=== PATIENT | male | born 1990 | race Caucasian/White ===

== ENCOUNTER 2016-11-17 12:05 | Emergency (ER) | payer OTHER ==
--- NOTE | 2016-11-17 12:20 | NUR ---
ARRIVAL PATIENT ARRIVED TO ED 4 AMBULATORY WITH FAMILY. PT REPORTS OF HARD NOTE TO RT FEMORAL AREA. PT HAD ANGIOGRAM DONE ON October AND YESTERDAY NOTICED NOTE FORMED. PAIN/TENDERNESS FELT WHEN WALKING.
--- NOTE | 2016-11-17 12:37 | ER.PDOC ---
General Chief Complaint: Requesting Medical Care Stated Complaint: HARD KNOT ON GROIN Time seen by MD: 12:36 Source: patient Exam Limitations: no limitations History of Present Illness Initial Comments had carotid angiogram last week. Still has "knot" at right inguinal area where arteriopuncture was performed. Concerned it is hard. Onset: last week Where: home Context: other Allergies: Coded Allergies: Penicillins (Verified Allergy, Unknown, Rash, 02/18/16) morphine (Verified Allergy, Unknown, 02/18/16) Vital Signs First Vital Signs Date Time Temp Pulse Resp B/P (MAP) Pulse Ox O2 Delivery O2 Flow Rate FiO2 11/17/16 12:14 98.0 77 18 99 Last Vital Signs Date Time Temp Pulse Resp B/P (MAP) Pulse Ox O2 Delivery O2 Flow Rate FiO2 11/17/16 12:52 77 18 99 11/17/16 12:14 98.0 Past Medical History Surgical History: no surgical history, tonsillectomy Reviewed Nursing Reviewed: Vital Signs, Abn. Noted, Nursing Assessment Review of Systems Constitutional: no symptoms reported EENTM: no symptoms reported Respiratory: no symptoms reported Cardiovascular: no symptoms reported Gastrointestinal: no symptoms reported Genitourinary: no symptoms reported Musculoskeletal: no symptoms reported Skin: see HPI Psychiatric/Neurological: no symptoms reported All Other Systems: Reviewed and Negative Physical Exam General Appearance: Alert, No Apparent Distress Foot: nml inspection Ankle: nml inspection Knee: nml inspection Thigh/Hip: nml inspection Gait: normal Neuro/Vasc/Tendon: sensation nml Skin: warm/dry (1.5 small firm subq induration c/w resolving hematoma in right groin with central pw. no erythema or tenderness. appears to be healing apropriately) Head/ENT: nml inspection Neck/Back: nml inspection Departure Time of Disposition: 12:45 Disposition: 01 HOME, SELF-CARE Impression: Primary Impression: Groin pain Qualified Codes: R10.31 - Right lower quadrant pain Condition: Stable Referrals: PCP,UNKNOWN (PCP) PRIMARY CARE PROVIDER Additional Instructions: return prn see pcp KARSTEN BLACK MD November 17, 2016 12:37
[2016-11-17 12:52] VITALS: BP 108/67
== END 2016-11-17 12:46 | disposition home or self-care (01) ==
LOC: ER 12:05
DX: R10.31 Right lower quadrant pain (principal); Z88.0 Allergy status to penicillin; Z88.5 Allergy status to narcotic agent
CPT/HCPCS: 99281